=== PATIENT | female | born 1990 | race Caucasian/White ===

== ENCOUNTER 2023-04-30 09:08 | Outpatient (CLI) | payer BC, SELFPAY | END 2023-04-30 09:09 | disposition home or self-care (01) | PROVIDERS: PCP Family Medicine; Visit Provider Family Medicine | DX: R53.83 Other fatigue (principal); Z13.220 Encounter for screening for lipoid disorders; E66.9 Obesity, unspecified; Z68.34 Body mass index [BMI] 34.0-34.9, adult | CPT/HCPCS: 80053; 80061; 84443 ==

== ENCOUNTER 2024-03-20 16:39 | Emergency (ER) | payer BC, SELFPAY ==
--- OUTSIDE RECORDS SUMMARY | 2024-03-20 16:41 | XMS_ITS | Clinical Summary ---
Author Organization [employer] [facility] Address [place], [place] [address] Care Team Providers Care Drapery Estimator Name Role Phone Pcp, No Primary Care Provider Unavailabl e Allergies No known active allergies Medications rx ondansetron (ZOFRAN ODT) 4 mg orally disintegrating tablet (ED DC MED)Indications:Na usea vomiting and diarrhea Place 1 Tablet (4 mg) on the tongue every 8 hours if needed. 4 Tablet 1 Active ondansetron (ZOFRAN ODT) 4 mg disintegrating tabletIndications: Nausea vomiting and diarrhea Place 1 Tablet (4 mg) on the tongue every 8 hours if needed for Nausea/Vomitin g. 20 Tablet 1 Active dicyclomine (BENTYL) 10 mg capsuleIndications :Abdominal bloating with cramps Take 1 Capsule (10 mg) by mouth 2 times daily before meals. 12 Capsule 1 Active methylPREDNISolone (MEDROL DOSEPAK) 4 mg tabletIndications: Sciatica of left side Take by mouth as instructed per packaging. 21 Tablet 4 Active cyclobenzaprine (FLEXERIL) 10 mg tabletIndications: Sciatica of left side Take 1 Tablet (10 mg) by mouth 3 times daily if needed for Muscle Spasm. 20 Tablet 4 Active Active Problems Problem Noted Date Diagnosed Date 03/13/2014 Overview (04/07/2014): G 3P 0111 SHAYLEE 10/25/14, by [place] FOB:Onesimo Trent (currently not in a relationship, ? If involved with the baby) Language:Ukrainian Complications: H/o pre-eclampsia (different FOB), needs Pap smear post pregnacy (did not tolerate during) QSM declines; CF declines; Rubella Immune; GC/Chlam Neg; RPR NR; HIV NR; HbsAg NR; Blood type O pos, ab screen neg; Hgb 13.0 ; Glucola ____; TSH 1.88; GBS ___ Rhogam: HSV History: None US: 03/14/14 with EDC of 10/25/14 Tdap ___ and Flu 2013 Rn Embedded: Unknown (daughter goes to [facility]) Encounters Date Type Department Care Team Description 01/27/2024 4:09 PM GLASSWARE ENGRAVER - 01/27/2024 5:22 PM GLASSWARE ENGRAVER Emergency [facility] [address] [place] [address] Josephine Asif PA Sciatica of left side (Primary Dx) Discharge Disposition: Home Self Care 01/27/2024 Travel from Last 3 Months Immunizations Name Administration Dates Next Due Hepatitis B, Unspecified 06/10/2000,12/05/1999,0 10/03/1999 Influenza Virus, Unspecified 12/07/2006 MENINGOCOCCAL VACCINE 2 VIAL 2MO-55YO (MENVEO) 12/15/2005 MMR, Unspecified 10/03/1999 Tdap, Unspecified 04/12/2009 Tuberculin (PPD) 12/14/2012 Family History Medical History Relation Name Comments Hypertension Father Cancer Maternal Grandmother Melanom a Other Maternal Grandmother MS Cancer Maternal Uncle 1 Diabetes Maternal Uncle 2 Cancer Mother Melanoma Other Sister 2 MS Relation Name Status Comments Daughter Alive x1 - born jessi turely Father Alive Maternal Grandfather Maternal Grandmother Alive Maternal Uncle 1 Maternal Uncle 2 Mother Alive Paternal Grandfather Paternal Grandmother Sister 1 Alive x1 Sister 2 Social History Tobacco Use Types Packs/Day Years Used Date Smoking Tobacco: Former Cigarettes Smokeless Tobacco: Never Alcohol Use Standard Drinks/Week Comments Yes 0 (1 standard drink = 0.6 oz pur e alcohol) PHQ-2 Answer Date Recorded PHQ-2 Score 0 07/09/2018 Social Connections Answer Date Recorded Frequency of Communication with Friends and Fami ly Not on file 02/16/2021 Financial Resource Strain Answer Date R ecorded Difficulty of Paying Living Expenses Not on file 02/16/2021 Difficulty of Paying Living Expenses Not on file 02/16/2021 Interpersonal Safety Answer Date Record ed Are you being hit, kicked, p ushed or yelled at (see row info)? No 01/27/2024 Interpersonal Safety Abuse 12 - 18 Not on file 01/27/2024 Interpersonal Safety Ambulatory Vulnerability No t on file 01/27/2024 Comments No Sex and Gender Information Value Date Recorded Sex Assigned at Not on file Legal Sex Female 10:58 AM CDT Gender Identity Not on file Sexual Orientation Not on file Obstetrics History Para Term AB IAB SAB Ectopic Multiple Livin g Live Births 3 1 1 1 1 1 1 Date Outcome GA Total Labor Labor/2nd/3rd Weight Sex Type Anes PTL Marcelina A1 A5 Name Clin 2006 SAB Comments:10 weeks 2007 36w 1d 2.52 kg (5 lb 9 oz) F Vag Epidur al N Livin g Giovanna Godwin Delivery [facility] Comments:Pre-eclampsia , severe Last Filed Vital Signs Vital Sign Reading Time Taken Comments Blood Pressure 121/78 01/27/2024 3:26 PM GLASSWARE ENGRAVER Pulse 72 01/27/2024 3:26 PM GLASSWARE ENGRAVER Temperature 36.7 C (98.1 F) 01/27/2024 3:23 PM GLASSWARE ENGRAVER Respiratory Rate 12 01/27/2024 3:26 PM GLASSWARE ENGRAVER Oxygen Saturation 98% 01/27/2024 3:26 PM GLASSWARE ENGRAVER Inhaled Oxygen Concentration - - Weight 95 kg (209 lb 8 oz) 01/27/2024 3:23 PM CS T Height 165.1 cm (5' 5) 01/27/2024 3:23 PM GLASSWARE ENGRAVER Body Mass Index 34.86 01/27/2024 3:23 PM GLASSWARE ENGRAVER Plan of Treatment Health Maintenance Due Date Last Done Comments Hepatitis C screening for ag e 18-79 2006 Tetanus booster 04/12/2019 04/12/2009 BMI (ht and wt on same day) for age 18+ 07/10/2019 07/09/2018 Depression screening for age 12+ 07/10/2019 07/09/2018 Pap test for age 21-65 04/14/2020 8, 04/14/2017 COVID-19 vaccine series ( season) 2023 Influenza for age 9-49 10/18/2023 12/07/2006 Tdap Completed 04/12/2009 HIV for age 15-65 Completed 03/13/2014 Pneumococcal series for age 6-49 Aged Out No longer eligible b ased on patient's age to complete this topic Procedures Procedure Name Priority Date/Time Associated Diagnosis Comments SPECIAL INVESTIGATION UNIT INVESTIGATOR THIN PREP PAP SCREEN IMAGED Routine 04/14/2017 10:57 AM GLASSWARE ENGRAVER ANTI HIV 1/2 Routine 03/13/2014 10:33 AM GLASSWARE ENGRAVER from Last 3 Months or Most Recently Relevant to Health Maintenance Results * SPECIAL INVESTIGATION UNIT INVESTIGATOR THIN PREP PAP SCREEN IMAGED (04/14/2017 10:57 AM GLASSWARE ENGRAVER) Case Report Gynecologic Cytology Report Case: [id number] Authorizing Provider: Unknown, Doctor Collected: 04/14/2017 1057 First Screen: Inna Majano Received: 04/16/2017 1115 Specimen: SPECIAL INVESTIGATION UNIT INVESTIGATOR ThinPrep Vial Screening, Cervical/Vaginal 04/21/2017 1:12 PM GLASSWARE ENGRAVER [employer] INTERPRETATION/ RESULT NEGATIVE FOR INTRAEPITHELIAL LESION OR MALIGNANCY (NIL) (none) 04/21/2017 1:12 PM GLASSWARE ENGRAVER [facility] NISM(S) Shift in meron suggestive of bacterial vaginosis 04/21/2017 1:12 PM GLASSWARE ENGRAVER [facility] ENTRAL LABORATORY SPECIMEN ADEQUACY Satisfactory for evaluation Endocervical component present 04/21/2017 1:12 PM GLASSWARE ENGRAVER [facility] HPV REQUEST HPV and PAP 04/21/2017 1:12 PM GLASSWARE ENGRAVER [facility] Date of LMP 12--17 04/21/2017 1:12 PM GLASSWARE ENGRAVER [employer] LABORATORY-C ENTRAL LABORATORY Last Pap Date 04/21/2017 1:12 PM GLASSWARE ENGRAVER [facility] Comment:+2 years ago Last Pap Result NIL 8 1:12 PM GLASSWARE ENGRAVER [facility] LAB[facility]ORY Comment:per patient Automated Review Successful 04/21/2017 1:12 PM GLASSWARE ENGRAVER [facility] LAB[facility]ATORY Comment:Specimen processed s uccessfully by automated welfare officer device, ThinPrep Imaging System, [employer] ANCILLARY TESTING SPECIAL INVESTIGATION UNIT INVESTIGATOR HPV Ordered, Please see separate report 04/21/2017 1:12 PM GLASSWARE ENGRAVER [facility] LABORATORY-C ENTRAL LABORATORY Note The pap test is a screening technique, not a diagnostic procedure. It is used primarily to screen for squamous cancers and precursor lesions. Published studies have shown that it is subject to both false negative and false positive results. The pap test should not be used as the sole means to diagnose or exclude pre-malignant and malignant lesions. Interpreted at [facility] ([facility], [facility], [facility], [facility], [facility], [facility], [facility]) 04/21/2017 1:12 PM GLASSWARE ENGRAVER [facility]- ENTRAL LABORATORY Other (Cervical/Vagina l) 04/14/2017 10:57 AM GLASSWARE ENGRAVER 04/16/2017 11:15 AM GLASSWARE ENGRAVER us Doctor Unknown PATHOLOGY/CYTOLOGY Final Result Performing Organization Address City/[facility]/ZIP Co de Phone Number [facility] [address] [place] [address], [place] * ANTI HIV 1/2 (03/13/2014 10:33 AM GLASSWARE ENGRAVER) HIV-1/HIV-2 ANTIBODY Non-Reacti ve Non-Reacti ve 03/13/2014 4:31 PM GLASSWARE ENGRAVER [facility] TRAL LABORATORY Blood specimen (specimen) BLOOD SPECIMEN / Unknown Venipuncture / Unknown 03/13/2014 10:33 AM GLASSWARE ENGRAVER 03/13/2014 10:33 AM GLASSWARE ENGRAVER Narrative [facility] - 03/13/2014 4:31 PM GLASSWARE ENGRAVER HIV-1 p24 and HIV-1/HIV-2 Ab not detected us Rachel Lazcano MD SEND OUTS Final Re sult [facility] [address] [place] [address], [place] from Last 3 Months or Most Recently Relevant to Health Maintenance Insurance [facility] * Guarantor: [id number] Account Type Relation to Patient Date of Phone Billing Address [facility] [address] Care Teams Drapery Estimator Relationship Specialty Start Date End Date Pcp, No . PCP - General 02/23/24
[2024-03-20 16:45] VITALS: BP 111/75; PULSE 105; RESP 20; TEMP 37; O2SAT 98; BMI 33.1
--- NOTE | 2024-03-20 16:58 | ED_ITS ---
HPI - General Adult General Date Seen: 03/20/24 Chief complaint: Shortness of Breath/Dyspnea Stated complaint: Pneumonia, SOB Time Seen by Provider: 03/20/24 16:45 History of Present Illness HPI narrative: Patient is a 33-year-old woman without known history of asthma, nonsmoker, who presents for evaluation of cough. She says a few weeks ago she had influenza. She recovered from those symptoms and said for about a week she felt just fine, the cough was gone, she had her energy back and fevers resolved. Over the past few days she has developed a cough and is feeling fatigued and low energy again. She has had shortness of breath, some pain in her chest with coughing. She does not have pleuritic chest pain. She does not have lower extremity swelling or pain. No recurrent fevers. She is concerned about possible pneumonia and did take some amoxicillin that she has at home last night and this morning. She is not on hormone replacement of any kind. No history of DVT or PE. Related Data Home Medications ?Medication ?Instructions ?Recorded ?Confirmed No Known Home Medications 03/20/24 03/20/24 Allergies Allergy/AdvReac Type Severity Reaction Status Date / Time No Known Drug Allergies Allergy Verified 03/20/24 16:43 Review of Systems Status of ROS: Reports: 10 or more systems reviewed and unremarkable except as noted in History and below [facility] Medical History ADHD, predominantly inattentive type ?F90.0 - Attention-deficit hyperactivity disorder, predominantly inattentive type (ICD-10) Recurrent major depression in partial remission (08/03/12) ?F33.41 - Major depressive disorder, recurrent, in partial remission (ICD-10) Pneumonia ?J18.9 - Pneumonia, unspecified organism (ICD-10) Needle phobia ?F40.298 - Other specified phobia (ICD-10) History of pre-eclampsia ?Z87.59 - Personal history of other complications of , childbirth and the puerperium (ICD-10) Generalized anxiety disorder ?F41.1 - Generalized anxiety disorder (ICD-10) Surgical History History of vaginal delivery Family History Father Coronary artery disease Myocardial infarction, Onset Age: 57 Aunt Diabetes Uncle Diabetes Mother Migraine Prediabetes Sister Multiple sclerosis Maternal Grandmother Multiple sclerosis Social History Narrative: Lives with edgar, 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 Lives in [place] Exercises 3 times a week 60 minutes cardio and weight Nonsmoker Quit smoking at age 18 before then 1-2 pack years. Rare alcohol use No drug use Smoking Status: Former smoker How often do you have a drink containing alcohol: monthly or less AUDIT-C Alcohol total score: 1 Non-prescribed substance use: denies use Exam Narrative: Exam Narrative: Vital signs reviewed In general, alert, nontoxic woman. Breathing easily. Head: Normocephalic, atraumatic. Eyes: Sclera clear. Pupils equal and reactive. ENT: Mucous membranes moist. Neck: Supple without adenopathy. Heart: Regular rate and rhythm without murmur. Lungs: Clear. No increased work of breathing, crackles or wheezes. Extremities: Well perfused, pulses intact. No significant edema. Neurologic: Alert, conversant. Speech fluent, face symmetric. Moves all extremities equally. Skin: Warm, dry well perfused. Affect: Normal. Const: Vital Signs, click to edit/add: Vital Signs - 24 hr 03/20/24 16:45 03/20/24 17:31 Temperature 98.6 F 98.2 F Pulse Rate [Pulse Oximeter] 105 H 96 Respiratory Rate 20 16 Blood Pressure [Ri ght Upper Arm] 111/75 121/73 Pulse Oximetry 98 98 Oxygen Delivery Me thod Room Air Room Air Course Course ED Course: Patient presents with cough following influenza illness. She is afebrile here, O2 sats are normal. I do not hear anything significant on lung exam, but I t hink it is reasonable to do an x-ray to look for pneumonia. Her heart rate on arrival is measured at 105, will repeat this. If she is persistently tachycardic than will do a D-dimer based on PERC criteria. If however her tachycardia is resolved, she is PERC negative and I think does not need further evaluation for PE. I do not have reason to suspect cardiac source for symptoms. I reviewed her chest x-ray, question a little bit of hilar prominence on the right although I do not see any kind of infiltrate on the lateral. I reviewed the radiology report, they agree there is some subtle prominence of the right hilum, could be infiltrate could be vascular. They suggested CT of the chest without contrast to further evaluate if it would change her clinical course. I discussed this option versus just treating for pneumonia and she would like to just treat at this time and see how she does. If she is not improving, would consider further imaging. Repeat vitals show a normal heart rate of 96, she continues to have normal O2 sats of 98%. Have prescribed amoxicillin and azithromycin. Primary care follow-up if not improved after treatment and return any time for significant worsening. Vital Signs Vital signs: Initial Vital Signs Temperature 98.6 F 03/20/24 16:45 Temperature Source Temporal Artery Scan 03/20/24 16:45 Pulse Rate 105 H 03/20/24 16:45 Pulse Rhythm Regular 03/20/24 16:45 Respiratory Rate 20 03/20/24 16:45 Blood Pressure 111/75 03/20/24 16:45 Blood Pressure Mean 87 03/20/24 16:45 Blood Pressure Position Sitting 03/20/24 16:45 Pulse Oximetry 98 03/20/24 16:45 Oxygen Delivery Method Room Air 03/20/24 16:45 Vital Signs Temperature 98.6 F 03/20/24 16:45 Pulse Rate 105 H 03/20/24 16:45 Respiratory Rate 20 03/20/24 16:45 Blood Pressure 111/75 03/20/24 16:45 Pulse Oximetry 98 03/20/24 16:45 Oxygen Delivery Method Room Air 03/20/24 16:45 Temperature 98.2 F 03/20/24 17:31 Pulse Rate 96 03/20/24 17:31 Respiratory Rate 16 03/20/24 17:31 Blood Pressure 121/73 03/20/24 17:31 Pulse Oximetry 98 03/20/24 17:31 Oxygen Delivery Method Room Air 03/20/24 17:31 Medical Decision Making Lab Data Labs: Lab Results 03/20/24 Range/Units 16:42 SARS-CoV-2 (PCR) Negative SARS-CoV-2 (Negative) Influenza Type A (PCR) Negative PCR FLU A (Negative) Influenza Type B (PCR) Negative PCR FLU B (Negative) RSV (PCR) Negative PCR RSV (Negative) Imaging Data Chest x-ray: Attestation: I have reviewed the pertinent imaging results. Radiologist's impression: [place] [address] Diagnostic Imaging Report Patient: Rosa Tillman MR#: [id number] : 1990 Acct:[id number] Loc: ED Service Date: 03/20/[address]: Ordering Physician: aRchel Carbajal M.D. Date of Service: 03/20/24 Procedure(s): XR chest 2V Accession Number(s): [id number] cc: Rachel Carbajal M.D.; Pedro Dejesus M.D.~ For Patients: As a result of the Cures Act, medical imaging exams and procedure reports are released immediately into your electronic medical record. You may view this report before your referring provider. If you have questions, please contact your health care provider. INDICATION: Shortness of breath, flu. TECHNIQUE: Chest 2 views. COMPARISON: Exams dating back to 2019. FINDINGS: Lungs: Normal lung volume. No consolidation. Subtle asymmetric prominence of right hilar vasculature. Pleura: No pleural effusion or pneumothorax. Heart and Mediastinum: Normal heart size. The great vessels of the thorax are unremarkable. Bones: No acute displaced osseous process. IMPRESSION: No consolidation. Subtle asymmetric prominence of right hilar vasculature, incompletely characterized. Consider further assessment with noncontrast chest CT to confirm vascular origin versus airspace disease if this would change the patient`s clinical management. Dictated by Pedro Richards MD @ 03/20/2024 5:29:53 PM Discharge Plan Discharge Clinical Impression: Pneumonia Patient Disposition: Home, Self-Care Condition: Stable Instructions: Community Acquired Pneumonia (DC) Additional Instructions: Take the azithromycin and amoxicillin as prescribed. If you do not feel improved after treatment, see your primary doctor. If you feel you are worsening, have recurrent high fevers, significant shortness of breath, vomiting etcetera return to the ER for re-evaluation. Prescriptions: No Action No Known Home Medications Follow Up/Referrals: Pedro Dejesus MD [Primary Care Provider] - Stand Alone Forms: [employer] Info Instructions
[2024-03-20 17:31] VITALS: BP 121/73; PULSE 96; RESP 16; TEMP 36.8; O2SAT 98
[2024-03-20 17:31] LABS: PCR FLU A Negative PCR FLU A (Negative); PCR FLU B Negative PCR FLU B (Negative); PCR RSV Negative PCR RSV (Negative); SARS PCR* Negative SARS-CoV-2 (Negative)
--- OUTSIDE RECORDS SUMMARY | 2024-03-20 18:24 | XMS_ITS | Clinical Summary ---
Author Organization [employer] [facility] Address [place], [place] [address] Care Team Providers Care Childcare Attendant Name Role Phone Pcp, No Primary Care [...] relationship, ? If involved with the baby) Language:Slovenian Complications: H/o pre-eclampsia (different FOB), needs Pap smear post pregnacy (did not tolerate during) QSM declines; CF declines; Rubella Immune; GC/Chlam Neg; RPR NR; HIV NR; HbsAg NR; Blood type O pos, ab screen neg; Hgb 13.0 ; Glucola ____; TSH 1.88; GBS ___ Rhogam: HSV History: None US: 03/14/14 with EDC of 10/25/14 Tdap ___ and Flu 2013 Director Of Gift Planning: Unknown (daughter goes to [place]) Encounters Date Type Department Care Team Description 01/27/2024 4:09 PM MOTTLER OPERATOR - 01/27/2024 5:22 PM MOTTLER OPERATOR Emergency [facility] [address] [place] [address] Josephine Asif PA Sciatica of left side [...] al N Livin g Giovanna Godwin Delivery Location:[facility] Comments:Pre-eclampsia , severe Last Filed Vital Signs Vital Sign Reading Time Taken Comments Blood Pressure 121/78 01/27/2024 3:26 PM MOTTLER OPERATOR Pulse 72 01/27/2024 3:26 PM MOTTLER OPERATOR Temperature 36.7 C (98.1 F) 01/27/2024 3:23 PM MOTTLER OPERATOR Respiratory Rate 12 01/27/2024 3:26 PM MOTTLER OPERATOR Oxygen Saturation 98% 01/27/2024 3:26 PM MOTTLER OPERATOR Inhaled Oxygen Concentration - - Weight 95 kg (209 lb 8 oz) 01/27/2024 3:23 PM CS T Height 165.1 cm (5' 5) 01/27/2024 3:23 PM MOTTLER OPERATOR Body Mass Index 34.86 01/27/2024 3:23 PM MOTTLER OPERATOR Plan of Treatment Health Maintenance Due Date [...] Procedure Name Priority Date/Time Associated Diagnosis Comments HEAD STOCK TRANSFER CLERK THIN PREP PAP SCREEN IMAGED Routine 04/14/2017 10:57 AM MOTTLER OPERATOR ANTI HIV 1/2 Routine 03/13/2014 10:33 AM MOTTLER OPERATOR from Last 3 Months or Most Recently Relevant to Health Maintenance Results * HEAD STOCK TRANSFER CLERK THIN PREP PAP SCREEN IMAGED (04/14/2017 10:57 AM MOTTLER OPERATOR) Case Report Gynecologic Cytology Report Case: [id number] Authorizing Provider: Unknown, Doctor Collected: 04/14/2017 1057 First Screen: Inna Majano Received: 04/16/2017 1115 Specimen: HEAD STOCK TRANSFER CLERK ThinPrep Vial Screening, Cervical/Vaginal 04/21/2017 1:12 PM MOTTLER OPERATOR [employer] ENTRAL LABORATORY INTERPRETATION/ RESULT NEGATIVE FOR INTRAEPITHELIAL LESION OR MALIGNANCY (NIL) (none) 04/21/2017 1:12 PM MOTTLER OPERATOR [facility] Group[facility] NISM(S) Shift in meron suggestive of bacterial vaginosis 04/21/2017 1:12 PM MOTTLER OPERATOR [facility] ENTRAL LABORATORY SPECIMEN ADEQUACY Satisfactory for evaluation Endocervical component present 04/21/2017 1:12 PM MOTTLER OPERATOR [facility] LAB[facility] HPV REQUEST HPV and PAP 04/21/2017 1:12 PM MOTTLER OPERATOR [facility] LAB[facility] Date of LMP 12--17 04/21/2017 1:12 PM MOTTLER OPERATOR [employer] LABORATORY-C ENTRAL LABORATORY Last Pap Date 04/21/2017 1:12 PM MOTTLER OPERATOR [facility] Group[facility] Comment:+2 years ago Last Pap Result NIL 8 1:12 PM MOTTLER OPERATOR [facility] Comment:per patient Automated Review Successful 04/21/2017 1:12 PM MOTTLER OPERATOR [facility] LAB[facility] Comment:Specimen processed s uccessfully by automated former hand device, ThinPrep Imaging System, [employer] ANCILLARY TESTING HEAD STOCK TRANSFER CLERK HPV Ordered, Please see separate report 04/21/2017 1:12 PM MOTTLER OPERATOR [facility] LABORATORY-C ENTRAL LABORATORY Note The pap [...] exclude pre-malignant and malignant lesions. Interpreted at [facility] ([facility], [facility], [facility], [facility], [facility], [facility], [facility]) 04/21/2017 1:12 PM MOTTLER OPERATOR [facility]- ENTRAL LABORATORY Other (Cervical/Vagina l) 04/14/2017 10:57 AM MOTTLER OPERATOR 04/16/2017 11:15 AM MOTTLER OPERATOR us Doctor Unknown PATHOLOGY/CYTOLOGY Final Result Performing Organization Address City/[facility]/ZIP Co de Phone Number [facility] [address] [place] [address], [place] * ANTI HIV 1/2 (03/13/2014 10:33 AM MOTTLER OPERATOR) HIV-1/HIV-2 ANTIBODY Non-Reacti ve Non-Reacti ve 03/13/2014 4:31 PM MOTTLER OPERATOR [facility] TRAL LABORATORY Blood specimen (specimen) BLOOD SPECIMEN / Unknown Venipuncture / Unknown 03/13/2014 10:33 AM MOTTLER OPERATOR 03/13/2014 10:33 AM MOTTLER OPERATOR Narrative [facility] - 03/13/2014 4:31 PM MOTTLER OPERATOR HIV-1 p24 and HIV-1/HIV-2 Ab not detected us Rachel Lazcano MD SEND OUTS Final Re sult [facility] [address] [place] [address], [place] from Last 3 Months or Most Recently Relevant to Health Maintenance Insurance [facility] * Guarantor: [id number] Account Type Relation to Patient Date of Phone Billing Address [facility] [address] Care Teams Childcare Attendant Relationship Specialty Start Date End Date Pcp, No . PCP - General 02/23/24
== END 2024-03-20 18:32 | disposition home or self-care (01) ==
LOC: ED 18:22
PROVIDERS: Emergency Provider Emergency Medicine; PCP Family Medicine
DX: J18.9 Pneumonia, unspecified organism (principal)
CPT/HCPCS: 71046; 87631; 99284

== ENCOUNTER 2025-01-08 06:41 | Emergency (ER) | payer BC, SELFPAY ==
--- OUTSIDE RECORDS SUMMARY | 2025-01-08 06:43 | XMS_ITS | Clinical Summary ---
Author Organization [email or web address] [facility] Address [address] [place] [id number] Care Team Providers Care Sap Plant Maintenance Consultant Name Role Phone Pcp, No Primary Care [...] relationship, ? If involved with the baby) Language:[place] Complications: H/o pre-eclampsia (different FOB), needs Pap smear post pregnacy (did not tolerate during) QSM declines; CF declines; Rubella Immune; GC/Chlam Neg; RPR NR; HIV NR; HbsAg NR; Blood type O pos, ab screen neg; Hgb 13.0 ; Glucola ____; TSH 1.88; GBS ___ Rhogam: HSV History: None US: 03/14/14 with EDC of 10/25/14 Tdap ___ and Flu 2013 Sweat Box Attendant: Unknown (daughter goes to [place]) Immunizations Immunization Administration Dates Next Due Hepatitis B, Unspecified [...] al N Livin g Giovanna Godwin Delivery Location:[facility] Comments:Pre-eclampsia , severe Last Filed Vital Signs Vital Sign Reading Time Taken Comments Blood Pressure 121/78 01/27/2024 3:26 PM TRANSITION ASSISTANT Pulse 72 01/27/2024 3:26 PM TRANSITION ASSISTANT Temperature 36.7 C (98.1 F) 01/27/2024 3:23 PM TRANSITION ASSISTANT Respiratory Rate 12 01/27/2024 3:26 PM TRANSITION ASSISTANT Oxygen Saturation 98% 01/27/2024 3:26 PM TRANSITION ASSISTANT Inhaled Oxygen Concentration - - Weight 95 kg (209 lb 8 oz) 01/27/2024 3:23 PM CS T Height 165.1 cm (5' 5) 01/27/2024 3:23 PM TRANSITION ASSISTANT Body Mass Index 34.86 01/27/2024 3:23 PM TRANSITION ASSISTANT Plan of Treatment Health Maintenance Due Date Last Done Comments Hepatitis C screening for ag e 18-79 2006 HPV series for age 9-45 (1 - 3-dose SCDM series) 07/03/2015 Tetanus booster 04/12/2019 04/12/2009 BMI (ht and wt on same day) for age 18+ 07/10/2019 07/09/2018 Depression screening for age 12+ 07/10/2019 07/09/2018 Pap test for age 21-65 04/14/2020 8, 04/14/2017 Influenza Vaccine (#1) 2024 12/07/2006 RSV vaccine for adults or (1 - 1-dose 75+ series) 07/03/2063 Hepatitis B series for 19+ Completed 06/10, 12/05/1999, 10/03/1999 HIV for age 15-65 Completed 03/13/2014 Pneumococcal series for age 6-49 Aged Out No longer eligible b ased on patient's age to complete this topic Procedures Procedure Name Priority Date/Time Associated Diagnosis Comments QUALITY CONTROL CLERK THIN PREP PAP SCREEN IMAGED Routine 04/14/2017 10:57 AM TRANSITION ASSISTANT ANTI HIV 1/2 Routine 03/13/2014 10:33 AM TRANSITION ASSISTANT (HC) from Last 3 Months or Most Recently Relevant to Health Maintenance Results * QUALITY CONTROL CLERK THIN PREP PAP SCREEN IMAGED (04/14/2017 10:57 AM TRANSITION ASSISTANT) Case Report Gynecologic Cytology Report Case: [id number] Authorizing Provider: Unknown, Doctor Collected: 04/14/2017 1057 First Screen: Inna Majano Received: 04/16/2017 1115 Specimen: QUALITY CONTROL CLERK ThinPrep Vial Screening, Cervical/Vaginal 04/21/2017 1:12 PM TRANSITION ASSISTANT [facility] ENTRAL LABORATORY INTERPRETATION/ RESULT NEGATIVE FOR INTRAEPITHELIAL LESION OR MALIGNANCY (NIL) (none) 04/21/2017 1:12 PM TRANSITION ASSISTANT [facility] at 1312 TRANSITION ASSISTANT ORGANISM(S) Shift in meron suggestive of bacterial vaginosis 04/21/2017 1:12 PM TRANSITION ASSISTANT [facility] SPECIMEN ADEQUACY Satisfactory for evaluation Endocervical component present 04/21/2017 1:12 PM TRANSITION ASSISTANT [facility] ENTRAL LABORATORY HPV REQUEST HPV and PAP 04/21/2017 1:12 PM TRANSITION ASSISTANT [facility] EN[facility]AL LAB[facility]AT[facility] Date of LMP 12--17 04/21/2017 1:12 PM TRANSITION ASSISTANT [facility] Last Pap Date 04/21/2017 1:12 PM TRANSITION ASSISTANT [facility] ENTRAL LABORATORY Comment:+2 years ago Last Pap Result NIL 8 1:12 PM TRANSITION ASSISTANT [facility] LAB[facility] Comment:per patient Automated Review Successful 04/21/2017 1:12 PM TRANSITION ASSISTANT [facility] ENTRAL LABORATORY Comment:Specimen processed s uccessfully by automated environmental aid device, ThinPrep Imaging System, [employer] ANCILLARY TESTING QUALITY CONTROL CLERK HPV Ordered, Please see separate report 04/21/2017 1:12 PM TRANSITION ASSISTANT [facility] Note The pap test is [...] and malignant lesions. Interpreted at [facility] (Central Lab, , [facility], [facility], [facility], [facility], [facility], [facility]) 04/21/2017 1:12 PM TRANSITION ASSISTANT [facility]-C ENTRAL LABORATORY Other (Cervical/Vagina l) 04/14/2017 10:57 AM TRANSITION ASSISTANT 04/16/2017 11:15 AM TRANSITION ASSISTANT us Doctor Unknown PATHOLOGY/CYTOLOGY Final Result [facility] [address] [place] [address], [place] * ANTI HIV 1/2 (03/13/2014 10:33 AM TRANSITION ASSISTANT) HIV-1/HIV-2 ANTIBODY Non-Reacti ve Non-Reacti ve 03/13/2014 4:31 PM TRANSITION ASSISTANT [facility] TR[facility] Blood specimen (specimen) BLOOD SPECIMEN / Unknown Venipuncture / Unknown 03/13/2014 10:33 AM TRANSITION ASSISTANT 03/13/2014 10:33 AM TRANSITION ASSISTANT Narrative [facility] - 03/13/2014 4:31 PM TRANSITION ASSISTANT HIV-1 p24 and HIV-1/HIV-2 Ab not detected us Rachel Lazcano MD SEND OUTS Final Re sult [facility] [address] [place] [address], from Last 3 Months or Most Recently Relevant to Health Maintenance Insurance [facility] * Guarantor: [id number] Account Type Relation to Patient Date of Phone Billing Address [facility] * Guarantor: WES MUNOZ [facility] Account Type Relation to Patient Date of Phone Billing Address [facility] 02/17/[address] [place] [address] Care Teams Sap Plant Maintenance Consultant Relationship Specialty Start Date End Date Pcp, No . PCP - General 02/23/24
[2025-01-08 06:44] VITALS: BP 116/77; PULSE 79; RESP 16; TEMP 35.7; O2SAT 98; BMI 35.1
--- NOTE | 2025-01-08 07:10 | ED_ITS ---
HPI - General Adult General Chief complaint: Cough Stated complaint: cough/nasal issue Time Seen by Provider: 01/08/25 07:10 History of Present Illness HPI narrative: week and a half of sinus infection like congestion - green mucus comes out. cough, but no fevers or vomiting. Ibuprofen and left over antibiotics from pneumonia last year. 34-year-old woman presenting to the emergency department with concern prolonged congestion. Has produced some green mucus now. Some cough. Not exactly short of breath. No fever. Treating with ibuprofen and did take few doses I believe of some leftover amoxicillin when diagnosed with a pneumonia about 9 months ago. Is not exactly having facial pain. Irritated but not really with a sore throat. Can be worse when lying down. Has been using a Neti pot producing significant mucus. Cough drops. Related Data Previous Rx's ?Medication ?Instructions ?Recorded semaglutide (weight loss) 0.25 0.25 mg (0.5 mL) subcut QWEEK #2 mL 12/22/24 mg/0.5 mL subcutaneous pen injector (Wegovy) semaglutide (weight loss) 0.5 0.5 mg (0.5 mL) subcut Q 7D #2 mL 12/22/24 mg/0.5 mL subcutaneous pen injector (Wegovy) amoxicillin 875 mg tablet 875 mg PO BID 12 days #24 ta bs 01/08/25 benzonatate 200 mg capsule 200 mg PO TID PRN cough #21 caps 01/08/25 prednisone 20 mg tablet 40 mg (2 x 20 mg) PO DAILY # 10 tabs 01/08/25 Allergies Allergy/AdvReac Type Severity Reaction Status Date / Time No Known Drug Allergies Allergy Verified 12/20/24 15:04 Review of Systems Status of ROS: Reports: 6 or more systems reviewed and unremarkable except as noted in History and below [facility] Medical History ADHD, predominantly inattentive type ?F90.0 - Attention-deficit hyperactivity disorder, predominantly inattentive type (ICD-10) Recurrent major depression in partial remission (08/03/12) ?F33.41 - Major depressive disorder, recurrent, in partial remission (ICD-10) Pneumonia ?J18.9 - Pneumonia, unspecified organism (ICD-10) Needle phobia ?F40.298 - Other specified phobia (ICD-10) History of pre-eclampsia ?Z87.59 - Personal history of other complications of , childbirth and the puerperium (ICD-10) Generalized anxiety disorder ?F41.1 - Generalized anxiety disorder (ICD-10) Surgical History History of vaginal delivery Family History Father Coronary artery disease Myocardial infarction, Onset Age: 57 Aunt Diabetes Uncle Diabetes Mother Migraine Prediabetes Sister Multiple sclerosis Maternal Grandmother Multiple sclerosis Social History Narrative: Lives with fianc?e, 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 Lives in [place] Exercises 2 times a week 60 minutes, walking or weight Nonsmoker Quit smoking at age 18 before then 1-2 pack years. Rare alcohol use No drug use Smoking Status: Former smoker How often do you have a drink containing alcohol: monthly or less AUDIT-C Alcohol total score: 1 Non-prescribed substance use: denies use Exam Narrative: Exam Narrative: Pleasant. NAD. Does sound a little congested in the nasopharynx. No facial swelling erythema or tenderness. TMs bilaterally are full but not inflamed. Oropharynx is moist with some far posterior irritation but not marked cobblestoning. Lungs are clear. There is also no stridor. Heart in regular rate and rhythm. Const: Vital Signs, click to edit/add: Vital Signs - 24 hr 01/08/25 06:44 Temperature 96.3 F L Pulse Rate [Left P ulse Oximeter] 79 Respiratory Rate 16 Blood Pressure [Ri ght Upper Arm] 116/77 Pulse Oximetry 98 Oxygen Delivery Me thod Room Air Documenting provider has reviewed patient's vital signs: yes Course Vital Signs Vital signs: Initial Vital Signs Temperature 96.3 F L 01/08/25 06:44 Temperature Source Temporal Artery Scan 01/08/25 06:44 Pulse Rate 79 01/08/25 06:44 Pulse Rhythm Regular 01/08/25 06:44 Respiratory Rate 16 01/08/25 06:44 Blood Pressure 116/77 01/08/25 06:44 Blood Pressure Mean 90 01/08/25 06:44 Blood Pressure Position Sitting 01/08/25 06:44 Pulse Oximetry 98 01/08/25 06:44 Oxygen Delivery Method Room Air 01/08/25 06:44 Vital Signs Temperature 96.3 F L 01/08/25 06:44 Pulse Rate 79 01/08/25 06:44 Respiratory Rate 16 01/08/25 06:44 Blood Pressure 116/77 01/08/25 06:44 Pulse Oximetry 98 01/08/25 06:44 Oxygen Delivery Method Room Air 01/08/25 06:44 Temperature 96.3 F L 01/08/25 06:44 Pulse Rate 79 01/08/25 06:44 Respiratory Rate 16 01/08/25 06:44 Blood Pressure 116/77 01/08/25 06:44 Pulse Oximetry 98 01/08/25 06:44 Oxygen Delivery Method Room Air 01/08/25 06:44 Medical Decision Making MDM Narrative Medical decision making narrative: Appears to be suffering from some prolonged sinus congestion and lingering cold symptoms. Does not have a kind of discomfort I would expect for a diagnosis of sinusitis let alone a sinus infection; the color of the discharge is not diagnostic. I do not think likely has a pneumonia. Discussed expectations in options for care. I think at this point would focus on the congestion using better [id number] options and even augment with some prednisone. See patient discharge plan for further discussion Focus on hydration. Consider sleeping under the mist of cool mist humidifier. Menthol vapors might also be helpful. Could continue the Neti pot as you are doing. Otherwise prescribing prednisone. This steroid decreases inflammation and hopefully help you drain and might help with inflammation contributing to cough. I would also get some pseudoephedrine which is helpful for drying and congestion. This can help with postnasal drip related cough. I like the 12 hour formulation myself. This is available from the pharmacist with identification. If you are having increasing pain or not improved in a couple of days, also sending in a course of amoxicillin. For cough otherwise can continue with some cough drops octavio are using. Guaifenesin is a mucus thinner that is in these combo products you have been using. Often combined with dextromethorphan to suppress cough as well. Tessalon Perles (in this case prescribed as benzonatate) also can be helpful with postnasal drip related cough by decreasing that tickle sensation in the back of the throat. Sending in a script for these if you like as well. Discharge Plan Discharge Clinical Impression: Cough, Sinus congestion Patient Disposition: Home w/ Parent or Adult Condition: Stable Additional Instructions: Focus on hydration. Consider sleeping under the mist of cool mist humidifier. Menthol vapors might also be helpful. Could continue the Neti pot as you are doing. Otherwise prescribing prednisone. This steroid decreases inflammation and hop efully help you drain and might help with inflammation contributing to cough. I would also get some pseudoephedrine which is helpful for drying and congestion. This can help with postnasal drip related cough. I like the 12 hour formulation myself. This is available from the pharmacist with identification. If you are having increasing pain or not improved in a couple of days, also sending in a course of amoxicillin. For cough otherwise can continue with some cough drops eyou are using. Guaifenesin is a mucus thinner that is in these combo products you have been using. Often combined with dextromethorphan to suppress cough as well. Tessalon Perles (in this case prescribed as benzonatate) also can be helpful with postnasal drip related cough by decreasing that tickle sensation in the back of the throat. Sending in a script for these if you like as well. Prescriptions: New amoxicillin 875 mg tablet 875 mg PO BID 12 Days Qty: 24 0RF prednisone 20 mg tablet 40 mg PO DAILY Qty: 10 1RF benzonatate 200 mg capsule 200 mg PO TID PRN (Reason: cough) Qty: 21 1RF No Action Wegovy 0.25 mg/0.5 mL pen injector 0.25 mg subcut QWEEK Qty: 2 0RF Rx Instructions: administer weeks 1 through 4 of therapy Wegovy 0.5 mg/0.5 mL pen injector 0.5 mg subcut Q7D Qty: 2 0RF Rx Instructions: administer weeks 5 through 8 of therapy Follow Up/Referrals: Madeleine Viera MD [Primary Care Provider, Family Practice] Stand Alone Forms: [employer] Info Instructions
== END 2025-01-08 08:09 | disposition home or self-care (01) ==
PROVIDERS: Emergency Provider Family Medicine; PCP Family Medicine
DX: R05.1 Acute cough (principal); R09.81 Nasal congestion
CPT/HCPCS: 99284